=== PATIENT | female | born 1970 | race Caucasian/White ===

== ENCOUNTER → 2017-03-12 | Outpatient (CLI) | payer BC ==
--- NOTE | ~2017-03-12 | CR184 ---
[facility] A Service of [facility] RADIOLOGY TEXT RESULTS PATIENT: LEONARDO RAMOS LOCATION: [facility] : 66 UNIT #: [id number] AGE: [address]: Nikki Medina MD SEX: F ORDER DR: [id number] [facility] [address] [facility] [place], [place] [address] [id number] O MR#: [id number] Acc #: [id number] NAME: LEONARDO RAMOS : 1970 SEX: F STUDY DATE/TIME: 03/12/2017 16:02 UNIT: [facility] ROOM: STUDY DESCRIPTION: CR Lumbar Spine Min 4 Views Attending Physician: Nikki Medina M.D. Referring Physician: Nikki Medina M.D. Ordering Physician: Nikki Medina M.D. Primary Care Physician: Nikki Medina M.D. MEDICAL IMAGING REPORT This report is preliminary unless electronic signature is present EXAM Lumbar spine 03/12 HISTORY Lumbar degenerative disc disease. Chronic low back pain for two months. Pain worse with activity. FINDINGS 5 views of the lumbar spine were obtained, including flexion and extension views. Comparison made with06/05/11. There is continued disc space narrowing with endplate osteophyte formation at L5-S1. No compression fractures are identified. There is subtle grade 1 retrolisthesis of L3 on L4. This appears stable between flexion and extension. The patient/'s insulin pump is noted on the lateral views. IMPRESSION No fracture. Persistent degenerative disc disease at L5-S1. There is stable subtle grade retrolisthesis of L3 on L4. Dictated by... Kev Greene Jr., M.D. THIS IS AN ELECTRONICALLY VERIFIED REPORT Kev Greene Jr., M.D. at 03/14/2017 8:25 AM WALLY/sarahi TD: 03/13/2017 09:51 JOB #: [id number] MEDICAL IMAGING REPORT Page 1 of 1 COPY
== END | disposition home or self-care (01) ==
LOC: CRAD 15:46
DX: M51.36 Other intervertebral disc degeneration, lumbar region (principal); M43.16 Spondylolisthesis, lumbar region
CPT/HCPCS: 72110